=== PATIENT | male | born 2000 | race Caucasian/White ===

== ENCOUNTER 2023-11-28 15:45 | Emergency (ER) | payer OTHER, SELFPAY ==
[2023-11-28 15:46] VITALS: BP 140/81; PULSE 86; RESP 18; TEMP 36; O2SAT 100; BMI 22.0
--- NOTE | 2023-11-28 15:51 | EX.ED.DYSGE1 ---
HPI History of Present Illness Chief Complaint: Complaint PFS PFS Medical History no medical history Allergy/AdvReac Type Severity Reaction Status Date / Time No Known Allergies Allergy Verified 11/28/23 15:46 Social History Smoking Status: Never smoker EXAM Physical Exam Const Vital Signs: 11/28/23 15:46 11/28/23 17:45 11/28/23 18:42 Temperature 96.8 F L 98.4 F Temperature Source Temporal Pulse Rate 86 81 81 Respiratory Rate 18 16 16 Blood Pressure 140/81 H 148/73 H 138/74 H Blood Pressure Mean 100 98 95 Pulse Ox 100 100 100 Oxygen Delivery Method Room Air Room Air [facility] [place] Medical decision making narrative: HISTORY OF PRESENT ILLNESS: 23-year-old male here with injury to right scrotum after getting hit during his walking. He states this occurred this afternoon at approximately 3pm . He states severe pain to the right testicle. No history of testicular surgery. REVIEW OF SYSTEMS: Pertinent positives: Scrotal pain Pertinent negatives: vomiting PHYSICAL EXAM: Nursing triage notes reviewed, Vital signs reviewed Constitutional: please see [facility] HENT: MMM Eyes: Pupils equal round and reactive to light, Extraocular muscles intact Neck: No stridor, no JVD, full neck ROM Lungs: Clear to auscultation, No wheezing or rales. No increased work of breathing, no conversational dyspnea, no accessory muscle use, no nasal flaring. 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 Patient consents for sensitive exam. Right testicle exquisitely tender to palpation with abnormal lie and positive cremasteric reflex. No overlying skin changes. Extremities: No edema Neuro: No focal neurological deficits, cranial nerves II through XII intact, 5/5 strength in all extremities. Intact sensation to light touch in all extremities, 2+ reflexes bilateral patella tendons. Normal gait. No ataxia. Skin: No rash or lesions noted MEDICAL DECISION MAKING: Chief Complaint: Scrotal pain External records reviewed: Reviewed allergies, prior labs, images, problems Factors affecting care: none Social determinants of health: none History obtained from others: none Consults: Urology (Dr. Bazzi), Radiology (Dr. Cuellar) MDM Narrative: Patient was initially hemodynamically stable, afebrile and nontoxic-appearing. Exam with severe right testicular TTP, intact cremaster reflex, abnormal testicular lie. I considered the following differential diagnosis: Testicular torsion, testicular laceration, orchitis, epididymitis, testicular contusion Obtain ultrasound to rule out any intratesticular abnormalities. ALL IMAGES (IF OBTAINED) HAVE BEEN PERSONALLY REVIEWED AND INTERPRETED BY MYSELF. Testicular ultrasound shows the following: IMPRESSION: Findings which may be consistent with testicular torsion with evolving necrosis and moderate sized complex hydrocele possibly hemorrhagic. Cannot exclude coexisting posttraumatic testicular rupture. Ultrasound report received at 5:15 PM. Spoke to radiology shortly thereafter who alerted me of the testicular rupture. At 5:20 PM mainly attempted manual detorsion via the open book method. Sent a page to initially [facility] At approximately 5:25 PM [facility] Without call back send patient [facility] approximately 5:50 pm Spoke to [facility] transfer center approximately 5:55 PM currently awaiting callback from Urology Spoke to Dr. Bazzi at 6:13pm who recommended ED to ED transfer for definitive urologic evaluation. Spoke to ED doc at approximately 6:17pm who accepted the patient transfer. Patient transported by private vehicle after shared decision making discussion. Patient left ED at approximately 6:20 PM. CBC with leukocytosis suggestive of systemic summation, no anemia, no thrombocytopenia BMP without evidence of significant electrolyte abnormalities, no anion gap, no acute kidney injury. UA ordered but not obtained secondary to patient being unable to provide a sample. The patient and/or family, caregivers express understanding. The patient and/or family, caregivers agrees with the plan. Shared decision making: I will have a discussion with the patient and or visitors regarding risk/benefits of further testing or admission. They will be made aware of of the risk/benefits inherent in this decision they will be given the opportunity to voice understanding. Total critical care time today provided was at least 35 minutes. This excludes separately billable procedures. Critical care time (if documented) is secondary to the patient having high probability of clinically significant/life threatening deterioration in the patient's condition which required my urgent intervention. Impression: 1. Right testicular pain 2. Testicular rupture 3. Leukocytosis Dispo: Transfer to nearest center with urology This note was generated with [employer] dictation software. It may contain incorrect words, spelling, and punctuation that were not noted in review of the chart prior to signing. Lab Data Labs: Laboratory Results - last 24 hr 11/28/23 11/28/23 17:23 17:30 WBC 15.2 H RBC 4.99 Hgb 15.3 Hct 44.8 MCV 89.8 MCH 30.7 MCHC 34.2 RDW Std Deviation 43.5 RDW Coeff of Nathaniel 13.3 Plt Count 223 MPV 11.3 Sodium 136 Potassium 3.9 Chloride 104 Carbon Dioxide 25.0 Anion Gap 7 BUN 17 Creatinine 1.04 Estim Creat Clear Calc 115.24 Est GFR (MDRD) Af Amer 113 Est GFR (MDRD) Non-Af 94 BUN/Creatinine Ratio 16.3 Glucose 90 Calcium 9.7 Radiography Diagnostic Testing: Clinical Impression(s) from Imaging Studies Testicular Ultrasound 11/28/23 15:54 IMPRESSION: Findings which may be consistent with testicular torsion with evolving necrosis and moderate sized complex hydrocele possibly hemorrhagic. Cannot exclude coexisting posttraumatic testicular rupture. Electronically Signed: Bryan Cuellar MD at 17:53 EDT , ADDENDUM: 11/28/23 1807 IMPRESSION: Findings which may be consistent with testicular torsion with evolving necrosis and moderate sized complex hydrocele possibly hemorrhagic. Cannot exclude coexisting posttraumatic testicular rupture. N.B. : The above Results were Read Back by Bryan Cuellar MD to Justice Graves DO, and understanding confirmed on 11/28/2023 18:00:12 (ET). Electronically Signed: Bryan Cuellar MD at 17:53 EDT , Discharge Plan Triage Chief Complaint: Complaint ED Provider: Justice Graves Dx/Rx/DC Orders Primary Care Provider: Care Physician,No Primary Referrals: NOT,DEFINED [Non-Staff] - Print Language: Beninese Disposition Disposition: Acute Care Hospital Discharge Location: [facility] Discharge Date/Time: 11/28/23 18:45
--- NOTE | 2023-11-28 15:54 | US_ITS ---
We are attempting to reach an attending provider to discuss findings. An addendum with communication details will be sent when the communication is complete. STUDY: SCROTUM ULTRASOUND REASON FOR EXAM: Male, 23 years old. testicular pain TECHNIQUE: Ultrasound evaluation of the scrotum was performed with color Doppler and static snow-scale imaging. COMPARISON: None. FINDINGS: RIGHT TESTICLE INTRATESTICULAR: The right testis is enlarged measuring 5.8 x 4.9 x 3.4 cm There is a heterogeneous echotexture. There is absent arterial and decreased venous vascularity. There is no demonstrated right testicular mass or cyst. EXTRATESTICULAR: The epididymis is normal in size. The epididymis head measures 1.1 x 1.5 x 0.8 cm. There is normal vascularity of the epididymis. There is no demonstrated epididymal cystic structure. Moderate-sized complex hydrocele There is no demonstrated varicocele. There is no demonstrated extratesticular mass or cyst. LEFT TESTICLE INTRATESTICULAR: There is a normal size of the left testicle. The left testicle measures 4.2 x 2.6 x 1.8 cm. There is a homogenous echotexture. There is normal arterial and normal venous vascularity. There is no demonstrated left testicular mass or cyst. EXTRATESTICULAR: The epididymis is normal in size. The epididymis head measures 1.2 x 1.1 x 0.7 cm. There is normal vascularity of the epididymis. There is a tiny epididymal cyst. There is no demonstrated hydrocele. There is no demonstrated varicocele. There is no demonstrated extratesticular mass or cyst. US/Testicular with Arterial Flow IMPRESSION: Findings which may be consistent with testicular torsion with evolving necrosis and moderate sized complex hydrocele possibly hemorrhagic. Cannot exclude coexisting posttraumatic testicular rupture. Electronically Signed: Bryan Cuellar MD at 17:53 EDT ,
[2023-11-28] MEDS: Ibuprofen 200 MG Tablet 400 MG PO (16:02)
[2023-11-28] MEDS: Acetaminophen 325 MG Tablet 650 MG PO (16:02)
[2023-11-28] MEDS: Morphine 4 MG/ML Syringe IV (17:39)
[2023-11-28 17:45] VITALS: BP 148/73; PULSE 81; RESP 16; O2SAT 100
--- NOTE | 2023-11-28 17:55 | NURSING ---
FAXED FACESHEET TO [facility]
[2023-11-28 18:00] LABS: Hematocrit 44.8 % (40-54); Hemoglobin 15.3 g/dL (13.0-16.5); Mean Corp Hgb Conc 34.2 g/dL (32-36); Mean Corpuscular Hgb 30.7 pg (27.0-32.0); Mean Corpuscular Volume 89.8 fL (80-94); Mean Platelet Vol. 11.3 fl (6.2-12.0); Platelet Count 223 K/mm3 (150-450); RBC Distribution Width CV 13.3 % (11.6-14.6); RBC Distribution Width SD 43.5 fl (35.1-43.9); Red Blood Count 4.99 M/mm3 (4.6-6.2); White Blood Count 15.2 K/mm3 (4.4-11.0)
--- NOTE | 2023-11-28 18:04 | NURSING ---
172 ATTEMPTED TO CALL [facility] JULIAN HERNANDEZ NEVER TALKED TO A PERSON
--- NOTE | 2023-11-28 18:05 | NURSING ---
[id number] [facility] TALKED TO WILDA
[2023-11-28 18:42] VITALS: BP 138/74; PULSE 81; RESP 16; TEMP 36.9; O2SAT 100
[2023-11-28 18:48] LABS: Anion Gap 7 (5-15); BUN 17 mg/dL (7-18); BUN/Creat Ratio 16.3 RATIO (10-20); Calcium,Total 9.7 mg/dL (8.5-10.1); Chloride 104 mmol/L (98-107); Creatinine, Serum 1.04 mg/dL (0.70-1.30); EST Glomerular Filtration Rate 94 mL/min (>60); Est Glom Filt Rate - Afr Amer 113 mL/min (>60); Estimated Creatinine Clearance 115.24 ml/min; Glucose 90 mg/dL (74-106); Potassium 3.9 mmol/L (3.5-5.1); Sodium Level 136 mmol/L (136-145)
== END 2023-11-28 18:45 | disposition short-term general hospital (02) ==
PROVIDERS: Emergency Provider Emergency Medicine; Visit Provider Emergency Medicine
DX: N50.82 Scrotal pain (principal); N50.811 Right testicular pain; D72.829 Elevated white blood cell count, unspecified
CPT/HCPCS: 76870; 80048; 85027; 93976; 96374; 99284; J7040; A4216